=== PATIENT | male | born 1985 | race Caucasian/White ===

== ENCOUNTER 2023-05-01 19:21 | Emergency (ER) | payer BC, SELFPAY ==
[2023-05-01 19:30] VITALS: BP 159/87; PULSE 87; RESP 16; TEMP 36.7; O2SAT 98; O2SAT 99; BMI 34.4
[2023-05-01] MEDS: dexAMETHasone 10 MG/ML inj PO (19:46)
--- NOTE | 2023-05-01 20:02 | ED.ALLEREA ---
HPI - Allergic Reaction General Chief complaint: Allergic Reaction Stated complaint: Tongue and lips swollen, itchy all over Time Seen by Provider: 05/01/23 19:23 History of Present Illness HPI narrative: This 37-year-old male comes in with swelling of the left side of his lower lip and the distal portion of his tongue. This started about 30 minutes prior to arrival an occurred rather suddenly after eating a salad that his had prepared. He had not had this type of food in the salad before as far as he knows. He does not have any other symptoms. His airway is intact and there is no report of shortness of breath. He does not have any rash or pruritus. He does not report any prior history of allergic reactions. 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 Related Data Home Medications Medication Instructions Recorded Confirmed hydrochlorothiazide 25 mg tablet 25 mg PO DAILY 05/01/23 05/01/23 Previous Rx's Medication Instructions Recorded methylprednisolone 4 mg tablets in See Rx Instructions PO .COMPLEX 05/01/23 a dose pack (Medrol (Jose)) #21 ea Allergies Allergy/AdvReac Type Severity Reaction Status Date / Time No Known Drug Allergies Allergy Verified 05/01/23 19:33 Review of Systems Status of ROS Reports: 10 or more systems reviewed and unremarkable except as noted in History and below Narrative Constitutional: No fevers, no weight gain or loss. Eyes: No discharge. No vision changes. HENT: No congestion, no sore throat, no ear pain. Cardiovascular: No chest pain, no palpitations. Respiratory: No shortness of breath, no wheezes, no cough. Gastrointestinal: No abdominal pain, no vomiting, no diarrhea. Genitourinary: No dysuria, no hematuria. Musculoskeletal: Normal range of motion. Skin: No rashes, no pruritis. Swelling of the left side of his lower lip and the distal portion of his tongue. Neurological: No dizziness, weakness, sensory change, speech change. Endo/Heme/Allergies: No bruising or bleeding. No polydipsia. Pysch: no suicidality, no anxiety, no insomnia. All other systems reviewed and are negative. [facility] Medical History (Updated 05/01/23 @ 20:07 by Rehan Segovia MD) Hypertension ?I10 - Essential (primary) hypertension (ICD-10) Surgical History (Updated 05/01/23 @ 19:44 by Tim Pradhan RN) No significant past surgical history Social History Smoking Status: Never smoker Second hand tobacco smoke exposure: No How often do you have a drink containing alcohol: never How often do you have six or more drinks on one occasion: Never AUDIT-C Alcohol total score: 0 Non-prescribed substance use: denies use Exam Narrative: Exam Narrative: Constitutional: Well-developed, well-nourished, no acute distress. HEENT: Left side of the lower lip in the distal portion of his tongue has angioedema. The rest of his tongue and oropharynx appears completely normal. Neck: Normal range of motion. Nontender. Supple. Heart: Regular. No murmurs. Normal rate. Intact distal pulses. Lungs: Clear to auscultation. No chest discomfort. No wheezes, rhonchi, or rales. Abdomen: Normal bowel sounds. Nontender. No rebound tenderness. Genitalia: Deferred. Back: No midline tenderness. Normal range of motion. Extremities: Normal range of motion. No injury. Skin: Intact. No rash. Warm. No erythema or pallor. Neurologic: No altered sensation. No weakness. Alert and oriented. Psychiatric: No suicidality. No anxiety or depression. No insomnia. Nursing notes and vitals signs are reviewed. Const: Vital Signs, click to edit/add: Vital Signs - 24 hr 05/01/23 19:30 Temperature 98.0 F Pulse Rate [Right Pulse Oximeter] 87 Respiratory Rate 16 Blood Pressure [Le ft Upper Arm] 159/87 H Pulse Oximetry 99 Oxygen Delivery Me thod Room Air Course Vital Signs Vital signs: Initial Vital Signs Temperature 98.0 F 05/01/23 19:30 Temperature Source Temporal Artery Scan 05/01/23 19:30 Pulse Rate 87 05/01/23 19:30 Respiratory Rate 16 05/01/23 19:30 Respiratory Effort Normal, Spontaneous, Non-Labored 05/01/23 19:30 Respiratory Depth Normal 05/01/23 19:30 Respiratory Pattern Normal 05/01/23 19:30 Blood Pressure 159/87 H 05/01/23 19:30 Blood Pressure Mean 111 H 05/01/23 19:30 Blood Pressure Position Sitting 05/01/23 19:30 Pulse Oximetry 99 05/01/23 19:30 Oxygen Delivery Method Room Air 05/01/23 19:30 Vital Signs Temperature 98.0 F 05/01/23 19:30 Pulse Rate 87 05/01/23 19:30 Respiratory Rate 16 05/01/23 19:30 Blood Pressure 159/87 H 05/01/23 19:30 Pulse Oximetry 99 05/01/23 19:30 Oxygen Delivery Method Room Air 05/01/23 19:30 Temperature 98.0 F 05/01/23 19:30 Pulse Rate 87 05/01/23 19:30 Respiratory Rate 16 05/01/23 19:30 Blood Pressure 159/87 H 05/01/23 19:30 Pulse Oximetry 99 05/01/23 19:30 Oxygen Delivery Method Room Air 05/01/23 19:30 MDM - Allergic Reaction MDM Narrative Medical decision making narrative: This patient comes in with swelling of his left lower lip and tongue as described above. This is swelling typical of an angioedema related to some kind of allergen or pollen. It is very typical when compared to images of ones having pollen induced angioedema. These symptoms arose in his case soon after eating some preparation of a salad that his made using ingredients he is not encountered before apparently. The patient was observed here during which time he received an oral dose of dexamethasone 10 mg. Prior to arrival he did take Benadryl. His symptoms have not progressed at all but neither have the any of these symptoms improved. The patient feels okay to return home. I advised him to use antihistamines such as Claritin, Cassidy, or Zyrtec. I did provide a prescription for Medrol Dosepak. I also describe signs and symptoms that indicate a need for return and re-evaluation. Discharge Plan Discharge Clinical Impression: Angioedema Patient Disposition: Home, Self-Care Condition: Stable Additional Instructions: Take medication as prescribed. Follow up with MD or return if worsening symptoms occur. Prescriptions: New methylprednisolone [Medrol (Jose)] 4 mg tablets,dose pack See Rx Instructions .ROUTE .COMPLEX Qty: 21 0RF Rx Instructions: orally per package directions No Action hydrochlorothiazide 25 mg tablet 25 mg PO DAILY Follow Up/Referrals: Teresa Kay PA-C [Primary Care Provider] - Stand Alone Forms: [employer] Info Instructions
[2023-05-01 20:10] VITALS: BP 132/74; PULSE 89; RESP 16; TEMP 36.7; O2SAT 96
[2023-05-01 20:11] VITALS: BP 132/78; PULSE 87; RESP 16; TEMP 36.7; O2SAT 96
[2023-05-01 20:41] VITALS: BP 132/78; PULSE 87; RESP 16; TEMP 36.7
== END 2023-05-01 20:42 | disposition home or self-care (01) ==
PROVIDERS: Emergency Provider Emergency Medicine Emergency Medical Services; PCP Student in an Organized Health Care Education/Training Program
DX: T78.3XXA Angioneurotic edema, initial encounter (principal)
CPT/HCPCS: 94761; 99283; 99284; J1100

== ENCOUNTER 2023-12-25 19:27 | Emergency (ER) | payer BC, SELFPAY ==
[2023-12-25 19:43] VITALS: BP 140/88; PULSE 87; RESP 14; TEMP 36.1; O2SAT 96; BMI 36.5
--- NOTE | 2023-12-25 19:52 | XR_ITS ---
Patient: MARIAM GRANADOS Facility:?[facility] Patient ID:?[id number] Site Patient ID:?[id number]. Site :?[id number] Study:?XRay-Extremity Left 2nd finger 3v-12/25/2023 8:13:41 PM Ordering Physician:Efrain Preciado Final Report: INDICATION: Screw through finger, now removed. TECHNIQUE: Three views of the left 2nd finger. FINDINGS: No fracture or dislocation. No erosion. Mild soft tissue swelling. No radiodense foreign body. IMPRESSION: Soft tissue swelling left 2nd finger. The examination is otherwise negative. Dictated by Carroll Ledesma MD @ 12/25/2023 8:25:28 PM Signed by:?Carroll Ledesma MD @12/25/2023 8:25:28 PM (Electronic Signature)
--- NOTE | 2023-12-25 20:23 | ED.WOUNDLAC ---
HPI - Wound/Laceration General Date Seen: 12/25/23 Chief Complaint: Laceration/Wound Stated Complaint: L index finger screw thru Time Seen by Provider: 12/25/23 19:31 Source: patient Mode of arrival: ambulatory Limitations: no limitations History of Present Illness HPI narrative: Patient is a 38-year-old male with no pertinent medical problems presenting to emergency department after accidentally getting a screw left index finger. He states he was squinting of the 2 boards when he accidentally drilled and but the screw to his finger. The screw was then removed. States it is painful at this time but tolerable. His last tetanus shot 11/26/2022. He states he aggressively cleaned it out before coming. He did states he called the triage line before coming and they recommended for him to be evaluated. Denies any other injuries. Related Data Home Medications Medication Instructions Recorded Confirmed hydrochlorothiazide 25 mg tablet 25 mg PO DAILY 05/01/23 12/25/23 epinephrine 0.3 mg/0.3 mL 0.3 ml IM PRN anaphylaxis 12/25/23 12/25/23 injection, auto-injector Allergies Allergy/AdvReac Type Severity Reaction Status Date / Time No Known Drug Allergies Allergy Verified 05/01/23 19:33 Review of Systems Narrative: Pertinent systems reviewed and were negative unless stated HPI PFSH PFSH Medical History (Updated 05/16/23 @ 00:00 by Gurpreet Romero) Hypertension ?I10 - Essential (primary) hypertension (ICD-10) Surgical History (Updated 05/01/23 @ 19:44 by Tim Pradhan RN) No significant past surgical history Social History Smoking Status: Never smoker Second hand tobacco smoke exposure: No How often do you have a drink containing alcohol: monthly or less How often do you have six or more drinks on one occasion: Never AUDIT-C Alcohol total score: 1 Non-prescribed substance use: denies use Exam Narrative: Exam Narrative: Const: Well-nourished, Well-developed, in mild distress Eyes: PERRL, no conjunctival injection, and symmetrical lids HENT: Atraumatic external nose and ears. Moist mucous membranes. Removed MSK:Extremities w/o deformity, Normal Active ROM Skin: Warm, Dry. 0.75 cm laceration tip of left index finger just medial to nail Neuro: Normal Muscle tone, No focal neurological deficits. Psych: Awake, Alert, & Oriented x3. Appropriate mood and affect. Const: Vital Signs, click to edit/add: Vital Signs - 24 hr 12/25/23 19:43 Temperature 97.0 F L Pulse Rate [Pulse Oximeter] 87 Respiratory Rate 14 Blood Pressure [Ri ght Upper Arm] 140/88 H Pulse Oximetry 96 Oxygen Delivery Me thod Room Air Course Vital Signs Vital signs: Initial Vital Signs Temperature 97.0 F L 12/25/23 19:43 Temperature Source Temporal Artery Scan 12/25/23 19:43 Pulse Rate 87 12/25/23 19:43 Pulse Rhythm Regular 12/25/23 19:43 Respiratory Rate 14 12/25/23 19:43 Blood Pressure 140/88 H 12/25/23 19:43 Blood Pressure Mean 105 12/25/23 19:43 Blood Pressure Position Sitting 12/25/23 19:43 Pulse Oximetry 96 12/25/23 19:43 Oxygen Delivery Method Room Air 12/25/23 19:43 Vital Signs Temperature 97.0 F L 12/25/23 19:43 Pulse Rate 87 12/25/23 19:43 Respiratory Rate 14 12/25/23 19:43 Blood Pressure 140/88 H 12/25/23 19:43 Pulse Oximetry 96 12/25/23 19:43 Oxygen Delivery Method Room Air 12/25/23 19:43 Temperature 97.0 F L 12/25/23 19:43 Pulse Rate 87 12/25/23 19:43 Respiratory Rate 14 12/25/23 19:43 Blood Pressure 140/88 H 12/25/23 19:43 Pulse Oximetry 96 12/25/23 19:43 Oxygen Delivery Method Room Air 12/25/23 19:43 MDM - Wound/Laceration MDM Narrative Medical decision making narrative: This patient is a 38-year-old male presenting for puncture wound to left index finger. It was to the tip of the finger. Due to mechanism action I do want do an x-ray to make sure there are no fractures. X-ray read myself and the radiologist showed no concerning abnormality. No signs of fracture. Laceration was then sutured. Considering how the injury occurred in location I will treat with antibiotics of to help prevent any worsening infection. No signs infection at this time. His tetanus was within the past 10 years and does not need updated. He is otherwise doing will be discharged home. He handled the procedure well. Imaging Data Left 2nd finger: Attestation: I have reviewed the pertinent imaging results. Radiologist's impression: Soft tissue swelling left 2nd finger. The examination is otherwise negative. Dictated by Carroll Ledesma MD @ 12/25/2023 8:25:28 PM Discharge Plan Discharge Additional Instructions: Follow-up with your primary care provider in the next 7-10 days to have the 2 sutures removed. For next 6 months, once sutures are removed, whenever you go outside put a dab of sunscreen over the laceration site to improve scar appearance. Topical antibiotics are not necessary at this time. Patient can shower but do not submerge the laceration until sutures are removed. Return to emergency department if you develop signs of worsening infection of your finger. This includes swelling of the entire finger. Severe pain on the palmar side of the finger, inability to move the finger due to pain. Keflex was prescribed she through [facility]. Prescriptions: No Action hydrochlorothiazide 25 mg tablet 25 mg PO DAILY epinephrine 0.3 mg/0.3 mL auto-injector 0.3 ml IM PRN Follow Up/Referrals: Teresa Kay PA-C [Staff Physician] - Procedures Laceration L 2nd finger: Name of person performing procedure: Gurdeep Preciado Site: hand (Tip of index finger) Side (If applicable): left Size (cm): 0.75 Description: linear Depth: simple, single layer Local Anesthetic: bupivacaine 0.25% Amount of anesthesia used (mL): 8 Pre-repair: wound explored, irrigated extensively and deep structures intact Skin layer closed with: nylon Size (cm): 5-0 Number of sutures: 2 Technique: simple, interrupted
== END 2023-12-25 21:51 | disposition home or self-care (01) ==
LOC: ED 20:57
PROVIDERS: Emergency Provider Student in an Organized Health Care Education/Training Program; PCP Nurse Practitioner Family
DX: S61.221A Laceration with foreign body of left index finger without damage to nail, initial encounter (principal); W45.0XXA Nail entering through skin, initial encounter
CPT/HCPCS: 12001; 73140; 99282; 99283